=== PATIENT | female | born 1990 | race African-American/Black ===

== ENCOUNTER 2016-11-16 11:19 | Emergency (ER) | payer MEDICAID ==
[~2016-11-16] VITALS: Ht 175.3 cm; Wt 74.2 kg
[2016-11-16 13:40] LABS: CLARITY URINE CLEAR (CLEAR); COLOR URINE YELLOW (YELLOW); GLUCOSE URINE NEGATIVE (NEGATIVE); KETONES URINE NEGATIVE (NEGATIVE); LEUKOCYTE ESTERASE URINE 2+ (NEGATIVE); NITRITE URINE POSITIVE (NEGATIVE); OCCULT BLOOD URINE NEGATIVE (NEGATIVE); PH URINE 8.5 (4.5-8.0); PROTEIN URINE NEGATIVE (NEGATIVE); SPECIFIC GRAVITY URINE 1.019 (1.005-1.030)
[2016-11-16 13:50] VITALS: BP 122/68
== END 2016-11-16 14:23 | disposition home or self-care (01) ==
LOC: ER 12:19
DX: F41.9 Anxiety disorder, unspecified (principal); J45.909 Unspecified asthma, uncomplicated; N39.0 Urinary tract infection, site not specified; F12.10 Cannabis abuse, uncomplicated
CPT/HCPCS: 81001; 81025; 99283